=== PATIENT | male | born 1940 | race Caucasian/White ===

== ENCOUNTER 2023-05-26 10:43 | Inpatient (IN) | payer MEDICARE, OTHER ==
[2023-05-26 11:29] VITALS: BMI 29.3
[2023-05-26] MEDS ORDERED: Acetaminophen 325 MG TAB PO PRN (11:48)
[2023-05-26] MEDS ORDERED: Ondansetron PF 4 MG/2 ML Vial IVP PRN (11:48)
[2023-05-26] MEDS ORDERED: Lactated Ringer's 1,000 ML IV SCH (12:15)
[2023-05-26 12:51] LABS: ALT (SGPT) 20 U/L (8-55); AST (SGOT) 19 U/L (5-34); Albumin 2.7 g/dL (3.4-4.8); Alkaline Phosphatase 124 U/L (40-110); Anion Gap 13 mmol/L (10-20); BUN (Urea Nitrogen) 64 mg/dL (8.4-25.7); Bilirubin, Total 0.5 mg/dL (0.2-1.2); Calc. Creatinine Clearance 57 mL/min (70-130); Calcium 8.3 mg/dL (7.8-10.44); Carbon Dioxide 22 mmol/L (23-31); Chloride 105 mmol/L (98-107); Estimated GFR 52; Globulin 3.1 g/dL (2.4-3.5); Glucose 107 mg/dL (83-110); Protein, Total 5.8 g/dL (5.8-8.1); Sodium 134 mmol/L (136-145)
[2023-05-26 12:57] LABS: Troponin I 0.042 ng/mL (< 0.028)
[2023-05-26] MEDS ORDERED: Furosemide 100 MG/10 ML VIAL SLOW IVP SCH (13:00)
[2023-05-26 13:06] LABS: Potassium 6.3 mmol/L (3.5-5.1)
[2023-05-26] MEDS ORDERED: Dextrose 5% in Water 1,000 ML IV PRN (14:11)
[2023-05-26] MEDS ORDERED: Glucagon 1 MG/ML KIT IM PRN (14:11)
[2023-05-26] MEDS ORDERED: Dextrose 50% Abboject 50 ML SYRINGE SLOW IVP PRN (14:11)
[2023-05-26 18:25] LABS: Troponin I 0.057 ng/mL (< 0.028)
[2023-05-26] MEDS: Carvedilol 3.125 MG TAB PO SCH (20:54)
[2023-05-26] MEDS: Atorvastatin Calcium 40 MG TAB PO SCH (20:54)
[2023-05-26] MEDS: Tamsulosin HCl 0.4 MG CAP PO SCH (20:54)
[2023-05-26] MEDS: HYDROcodone/Acetaminophen 10/325 mg Tablet PO PRN (20:58)
[2023-05-27 00:37] LABS: Troponin I 0.051 ng/mL (< 0.028)
[2023-05-27 05:25] LABS: #Eosinphils 0.1 10x3/uL (0.0-0.5); #Monocytes 0.4 10x3/uL (0.0-1.1); #Neutrophils 2.3 10x3/uL (1.5-8.4); %Basophils 0.5 % (0.0-2.0); %Eosinophils 3.2 % (0.0-6.0); %Lymphocytes 29.2 % (18.0-47.0); %Monocytes 9.9 % (0.0-10.0); %Neutrophils 56.7 % (40.0-75.0); Hematocrit 30.9 % (38.8-50.0); Hemoglobin 9.5 g/dL (13.5-17.5); Mean Corpuscular HGB CONC 30.7 g/dL (32.0-36.0); Mean Corpuscular Hemoglobin 27.4 pg (27.0-33.0); Mean Platelet Volume 11.4 fl (7.4-10.4); Platelet Count 209 10x3/uL (150-450); RBC Distribution Width 19.8 % (11.5-14.5); Red Blood Cell (RBC) Count 3.47 10x6/uL (4.32-5.72)
[2023-05-27 05:34] LABS: Anion Gap 11 mmol/L (10-20); BUN (Urea Nitrogen) 56 mg/dL (8.4-25.7); Calc. Creatinine Clearance 68 mL/min (70-130); Calcium 8.3 mg/dL (7.8-10.44); Carbon Dioxide 25 mmol/L (23-31); Chloride 104 mmol/L (98-107); Estimated GFR 64; Glucose 123 mg/dL (83-110); Potassium 5.8 mmol/L (3.5-5.1); Sodium 134 mmol/L (136-145)
[2023-05-27] MEDS ORDERED: LOKELMA 10 GM PACKET PO SCH (08:45)
[2023-05-27] MEDS: Allopurinol 100 MG TAB PO SCH (08:56)
[2023-05-27] MEDS: HYDROcodone/Acetaminophen 10/325 mg Tablet PO PRN (08:56)
[2023-05-27] MEDS: Furosemide 40 MG TAB PO SCH (08:57)
[2023-05-27] MEDS: Fluticasone Propionate Nasal Spray 16 gm Bottle NASAL SCH (08:57)
[2023-05-27] MEDS: Metolazone 2.5 MG TAB PO SCH (08:57)
[2023-05-27] MEDS: ALPRAZolam 0.5 MG TAB PO SCH (08:57)
[2023-05-27] MEDS: Carvedilol 3.125 MG TAB PO SCH (08:57)
[2023-05-27] MEDS: Gabapentin 300 MG CAP PO SCH (08:58)
[2023-05-27 15:47] LABS: Anion Gap 11 mmol/L (10-20); BUN (Urea Nitrogen) 52 mg/dL (8.4-25.7); Calc. Creatinine Clearance 56 mL/min (70-130); Carbon Dioxide 24 mmol/L (23-31); Chloride 104 mmol/L (98-107); Estimated GFR 63; Glucose 135 mg/dL (83-110); Sodium 134 mmol/L (136-145)
[2023-05-28] MEDS: Atorvastatin Calcium 40 MG TAB PO SCH ×2 (00:10→22:09)
[2023-05-28] MEDS: Tamsulosin HCl 0.4 MG CAP PO SCH ×2 (00:10→22:09)
[2023-05-28 04:57] LABS: #Eosinphils 0.1 10x3/uL (0.0-0.5); #Monocytes 0.3 10x3/uL (0.0-1.1); #Neutrophils 2.5 10x3/uL (1.5-8.4); %Basophils 0.5 % (0.0-2.0); %Eosinophils 1.8 % (0.0-6.0); %Lymphocytes 23.9 % (18.0-47.0); %Monocytes 7.9 % (0.0-10.0); %Neutrophils 65.4 % (40.0-75.0); Hematocrit 29.4 % (38.8-50.0); Hemoglobin 9.1 g/dL (13.5-17.5); Mean Corpuscular Hemoglobin 27.6 pg (27.0-33.0); Mean Corpuscular Volume 89.1 fl (81.2-95.1); Platelet Count 185 10x3/uL (150-450); White Blood Cell (WBC) Count 3.8 10x3/uL (3.5-10.5)
[2023-05-28 05:17] LABS: Anion Gap 13 mmol/L (10-20); BUN (Urea Nitrogen) 47 mg/dL (8.4-25.7); Calc. Creatinine Clearance 60 mL/min (70-130); Calcium 8.1 mg/dL (7.8-10.44); Carbon Dioxide 23 mmol/L (23-31); Chloride 104 mmol/L (98-107); Estimated GFR 69; Glucose 128 mg/dL (83-110); Magnesium 1.7 mg/dL (1.6-2.6); Potassium 4.7 mmol/L (3.5-5.1); Sodium 135 mmol/L (136-145)
[2023-05-28] MEDS: HYDROcodone/Acetaminophen 10/325 mg Tablet PO PRN ×2 (05:30→23:08)
[2023-05-28] MEDS: Carvedilol 3.125 MG TAB PO SCH ×3 (05:34→22:09)
[2023-05-28] MEDS: Metolazone 2.5 MG TAB PO SCH (08:56)
[2023-05-28] MEDS: Gabapentin 300 MG CAP PO SCH (08:56)
[2023-05-28] MEDS: Allopurinol 100 MG TAB PO SCH (08:56)
[2023-05-28] MEDS: Furosemide 40 MG TAB PO SCH (08:56)
[2023-05-28] MEDS: ALPRAZolam 0.5 MG TAB PO SCH (08:56)
[2023-05-28] MEDS: Fluticasone Propionate Nasal Spray 16 gm Bottle NASAL SCH (08:57)
[2023-05-28] MEDS ORDERED: EPOETIN ALFA-EPBX (ESRD) 10,000 UNITS/ML VIAL SC SCH (12:00)
[2023-05-28] MEDS ORDERED: Cosyntropin 250 MCG VIAL SLOW IVP SCH (14:45)
[2023-05-28] MEDS ORDERED: ALPRAZolam 0.5 MG TAB PO SCH (23:00)
[2023-05-29 04:28] LABS: #Eosinphils 0.1 10x3/uL (0.0-0.5); #Monocytes 0.3 10x3/uL (0.0-1.1); %Basophils 0.6 % (0.0-2.0); %Eosinophils 2.9 % (0.0-6.0); %Lymphocytes 29.5 % (18.0-47.0); %Monocytes 9.4 % (0.0-10.0); %Neutrophils 57.3 % (40.0-75.0); Hematocrit 30.2 % (38.8-50.0); Hemoglobin 9.2 g/dL (13.5-17.5); Mean Corpuscular HGB CONC 30.5 g/dL (32.0-36.0); Mean Corpuscular Hemoglobin 27.5 pg (27.0-33.0); Mean Corpuscular Volume 90.1 fl (81.2-95.1); Mean Platelet Volume 10.7 fl (7.4-10.4); Platelet Count 200 10x3/uL (150-450); RBC Distribution Width 20.3 % (11.5-14.5); Red Blood Cell (RBC) Count 3.35 10x6/uL (4.32-5.72); White Blood Cell (WBC) Count 3.4 10x3/uL (3.5-10.5)
[2023-05-29 04:34] LABS: Anion Gap 11 mmol/L (10-20); BUN (Urea Nitrogen) 49 mg/dL (8.4-25.7); Calc. Creatinine Clearance 56 mL/min (70-130); Calcium 8.1 mg/dL (7.8-10.44); Carbon Dioxide 26 mmol/L (23-31); Chloride 103 mmol/L (98-107); Estimated GFR 63; Glucose 166 mg/dL (83-110); Magnesium 1.7 mg/dL (1.6-2.6); Potassium 4.5 mmol/L (3.5-5.1); Sodium 135 mmol/L (136-145)
[2023-05-29] MEDS: Carvedilol 3.125 MG TAB PO SCH ×2 (10:26→21:57)
[2023-05-29] MEDS: Allopurinol 100 MG TAB PO SCH (10:26)
[2023-05-29] MEDS: Furosemide 40 MG TAB PO SCH (10:26)
[2023-05-29] MEDS: Fluticasone Propionate Nasal Spray 16 gm Bottle NASAL SCH (10:26)
[2023-05-29] MEDS: ALPRAZolam 0.5 MG TAB PO SCH (10:26)
[2023-05-29] MEDS: Gabapentin 300 MG CAP PO SCH (10:27)
[2023-05-29] MEDS: Metolazone 2.5 MG TAB PO SCH (10:28)
[2023-05-29] MEDS: HYDROcodone/Acetaminophen 10/325 mg Tablet PO PRN (21:56)
[2023-05-29] MEDS: Tamsulosin HCl 0.4 MG CAP PO SCH (21:56)
[2023-05-29] MEDS: Atorvastatin Calcium 40 MG TAB PO SCH (21:57)
[2023-05-30 05:12] LABS: #Eosinphils 0.1 10x3/uL (0.0-0.5); #Monocytes 0.3 10x3/uL (0.0-1.1); #Neutrophils 1.7 10x3/uL (1.5-8.4); %Basophils 0.3 % (0.0-2.0); %Eosinophils 3.7 % (0.0-6.0); %Monocytes 9.7 % (0.0-10.0); Hematocrit 28.1 % (38.8-50.0); Hemoglobin 8.6 g/dL (13.5-17.5); Mean Corpuscular HGB CONC 30.6 g/dL (32.0-36.0); Mean Corpuscular Hemoglobin 27.5 pg (27.0-33.0); Mean Corpuscular Volume 89.8 fl (81.2-95.1); Platelet Count 147 10x3/uL (150-450); RBC Distribution Width 19.9 % (11.5-14.5); Red Blood Cell (RBC) Count 3.13 10x6/uL (4.32-5.72)
[2023-05-30 05:27] LABS: Anion Gap 9 mmol/L (10-20); BUN (Urea Nitrogen) 49 mg/dL (8.4-25.7); Calc. Creatinine Clearance 0 mL/min (70-130); Calcium 7.7 mg/dL (7.8-10.44); Carbon Dioxide 26 mmol/L (23-31); Chloride 101 mmol/L (98-107); Estimated GFR 59; Glucose 167 mg/dL (83-110); Magnesium 1.5 mg/dL (1.6-2.6); Potassium 4.3 mmol/L (3.5-5.1); Sodium 132 mmol/L (136-145)
[2023-05-30] MEDS: Metolazone 2.5 MG TAB PO SCH (10:17)
[2023-05-30] MEDS: Allopurinol 100 MG TAB PO SCH (10:17)
[2023-05-30] MEDS: Furosemide 40 MG TAB PO SCH (10:18)
[2023-05-30] MEDS: HYDROcodone/Acetaminophen 10/325 mg Tablet PO PRN (10:18)
[2023-05-30] MEDS: ALPRAZolam 0.5 MG TAB PO SCH (10:19)
[2023-05-30] MEDS: Carvedilol 3.125 MG TAB PO SCH ×2 (10:19→22:36)
[2023-05-30] MEDS: Fluticasone Propionate Nasal Spray 16 gm Bottle NASAL SCH (10:19)
[2023-05-30] MEDS: Gabapentin 300 MG CAP PO SCH (10:19)
[2023-05-30] MEDS ORDERED: Magnesium 2 GM/50 ML(in water) 2 GM in Premix Bag 1 BAG IVPB SCH (17:45)
[2023-05-30] MEDS: Atorvastatin Calcium 40 MG TAB PO SCH (22:36)
[2023-05-30] MEDS: Tamsulosin HCl 0.4 MG CAP PO SCH (22:36)
[2023-05-31 08:13] VITALS: TEMP 98.4
[2023-05-31] MEDS: Gabapentin 300 MG CAP PO SCH (09:00)
[2023-05-31] MEDS: Metolazone 2.5 MG TAB PO SCH (09:00)
[2023-05-31] MEDS: ALPRAZolam 0.5 MG TAB PO SCH (09:00)
[2023-05-31] MEDS: Furosemide 40 MG TAB PO SCH (09:01)
[2023-05-31] MEDS: Carvedilol 3.125 MG TAB PO SCH (09:02)
[2023-05-31] MEDS: Allopurinol 100 MG TAB PO SCH (09:02)
[2023-05-31] MEDS: Fluticasone Propionate Nasal Spray 16 gm Bottle NASAL SCH (09:05)
[2023-05-31] MEDS: HYDROcodone/Acetaminophen 10/325 mg Tablet PO PRN (09:30)
[2023-05-31 12:19] VITALS: BP 113/55
== END 2023-05-31 13:35 | DRG 640 ==
LOC: CSHTELE 10:43
PROVIDERS: ADMIT Family Medicine; ATTEND Internal Medicine
DX: E87.5 Hyperkalemia (principal); I50.41 Acute combined systolic (congestive) and diastolic (congestive) heart failure; I13.0 Hypertensive heart and chronic kidney disease with heart failure and stage 1 through stage 4 chronic kidney disease, or unspecified chronic kidney disease; I48.21 Permanent atrial fibrillation; I24.8 Other forms of acute ischemic heart disease; I42.8 Other cardiomyopathies; E87.1 Hypo-osmolality and hyponatremia; N18.30 Chronic kidney disease, stage 3 unspecified; M10.9 Gout, unspecified; G47.33 Obstructive sleep apnea (adult) (pediatric); D63.1 Anemia in chronic kidney disease; I25.10 Atherosclerotic heart disease of native coronary artery without angina pectoris; R54 Age-related physical debility; Z98.49 Cataract extraction status, unspecified eye; Z95.810 Presence of automatic (implantable) cardiac defibrillator; Z98.890 Other specified postprocedural states; Z79.899 Other long term (current) drug therapy
CPT/HCPCS: 36415; 36416; 71045; 80048; 80053; 82533; 83735; 84443; 84484; 85025; 93005; 93010; 94760; 94762; J0834; J1940; J3475; Q5105